=== PATIENT | female | born 1940 | race Caucasian/White ===

== ENCOUNTER 2019-09-11 06:17 | Inpatient (IN) | payer MEDICARE, OTHER ==
[2019-09-11] MEDS ORDERED: PROPOFOL 200 MG/20 ML VIAL IV ONE (08:48)
[2019-09-11] MEDS ORDERED: BUPIV. HCL 0.5% (5MG/ML)/EPI. (1:200,000) PF 30 ML VIAL IJ ONE (08:48)
[2019-09-11] MEDS ORDERED: ONDANSETRON HCL/PF 4 MG/ 2ML VIAL ONE (08:48)
[2019-09-11] MEDS ORDERED: LIDOCAINE HCL 2% PF 100MG/5ML VIAL IJ ONE (08:48)
[2019-09-11] MEDS ORDERED: DEXAMETHASONE SODIUM PHOSPHATE 10 MG/ML VIAL ONE (08:48)
[2019-09-11] MEDS ORDERED: GELATIN SPONGE,ABSORB/PORCINE (SIZE 100) 1 EACH SPONGE TP ONE (08:48)
[2019-09-11] MEDS ORDERED: LACTATED RINGERS 1,000 ML IV.SOLN IV ONE ×2 (08:48)
[2019-09-11] MEDS ORDERED: PHENYLEPHRINE HCL 10 MG/1 ML ONE (08:48)
[2019-09-11] MEDS ORDERED: ROCURONIUM BROMIDE 10 MG/ML 5ML VIAL ONE (08:48)
[2019-09-11] MEDS ORDERED: THROMBIN (RECOMBINANT) 20,000 UNIT VIAL TP ONE (08:48)
[2019-09-11] MEDS ORDERED: ceFAZolin SODIUM 1 GM VIAL ONE (08:48)
[2019-09-11] MEDS ORDERED: hydrALAZINE HCL 20 MG/1 ML ONE (08:48)
[2019-09-11] MEDS ORDERED: PROPOFOL 500 MG/50 ML VIAL IV ONE (08:48)
[2019-09-11] MEDS ORDERED: LABETALOL HCL 20 MG/4 ML SYRINGE IV ONE (08:48)
[2019-09-11] MEDS ORDERED: SEVOFLURANE 250 ML LIQUID IH ONE (08:48)
[2019-09-11] MEDS ORDERED: fentaNYL CITRATE/PF 100 MCG/2 ML INJ. ONE ×2 (12:14→13:00)
[2019-09-11] MEDS ORDERED: HYDROmorphone HCL/PF 1 MG/ML VIAL ONE (12:26)
[2019-09-11] MEDS ORDERED: MEPERIDINE (NF) 100 MG/ML INJ ONE (13:09)
[2019-09-11 15:48] VITALS: BMI 29.0
[2019-09-11] MEDS ORDERED: ALBUTEROL 90MCG/PUFF INHALER IH PRN (17:49)
[2019-09-11] MEDS ORDERED: IPRATROPIUM/ALBUTEROL SULFATE 3 ML AMPUL.NEB NEB PRN (17:49)
--- NOTE | 2019-09-11 18:07 | History and Physical Report ---
History of Present Illnes - History of Present Illness Reason for Visit: Chronic lower back pain, s/p right LFD at L-2,3,4 History of Present Illness: 79yo female with a year history of increasing lower back pain. No precipitating cause noted. Has been having a lot of pain in thigh area. No weakness noted. Patient has been through conservative therapy without much improvement. MRI scan showed spinal stenosis with protruding disc. It was felt that she would benefit from LFD of the L 3,4,5. During surgery patient was noted to have some elevated blood pressure. She was given some labetalol and hydralazine. Operative procedure was complicated with puncture to the dura sac which was closed with suture. Patient has multiple medical problems. Medical records reviewed. Patient does have some memory problems and was not consistent with her history. - Past Medical History Cardiac: HTN, Hyperlipidemia, Other (PAD) Pulmonary: COPD, Sleep Apnea RV REPAIR TECHNICIAN: CVA (x2) Gastrointestinal: Diverticulosis, Irritable bowel disease, Other (history of GI bleeding) Psych: Anxiety, Bipolar Musculoskeletal: Osteoarthritis (generalized), Other (spinal stenosis) Rheumatologic: Other (Lupus) Endocrine: Hypothyroidism - Past Surgical History Past Surgical History: Appendectomy, Cholecystectomy, Cataract Removal - Past Social History Smoke: No Occupation: retired, chef kitchen manager Alcohol: None Drugs: None Lives: With Family, Roommate Domestic Violence: Negative - Health Maintenance Health Maintenance: Cholesterol Influenza Vaccine: No Pneumonia Vaccine: Yes Resuscitation Status: Resusciation Status Resuscitation Status Full Code - Unable to Obtain History Unable to Obtain: No Review of Systems - Review of Systems Constitutional: negative: Fever, Chills, Weakness Eyes: negative: pain, vision change, conjunctivae inflammation ENT: negative: Ear Pain, Ear Discharge, Nose Pain, Nose Discharge, Nose Congestion, Mouth Pain, Mouth Swelling, Throat Pain, Throat Swelling Respiratory: negative: Cough, Shortness of Breath, SOB with Excertion, Pleuritic Pain, Sputum Cardiovascular: negative: Chest Pain, Palpitations, Paroxysmal Noc. Dyspnea, Light Headedness Gastrointestinal: negative: Nausea, Vomiting, Abdominal Pain, Diarrhea, Constipation, Melena, Hematochezia Genitourinary: negative: Dysuria, Frequency, Hematuria Musculoskeletal: Back Pain. negative: Neck Pain, Shoulder Pain Skin: negative: Rash Neurological: negative: Weakness, Numbness, Incoordination, Change in Speech, Confusion, Seizures - Medications/Allergies Allergies/Adverse Reactions: Allergies Allergy/AdvReac Type Severity Reaction Status Date / Time No Known Allergies Allergy Verified 09/11/19 15:48 Home Medications: Home Medications Albuterol Sulfate [Albuterol Sulfate Hfa] 2 puff IH Q4 PRN 09/11/19 Aripiprazole [Abilify] 15 mg PO DAILY 09/11/19 Biotin 5,000 mcg PO DAILY 09/11/19 Duloxetine HCl [Cymbalta] 60 mg PO DAILY 09/11/19 Ezetimibe [Zetia] 10 mg PO DAILY 09/11/19 Furosemide [Lasix] 20 mg PO DAILY 09/11/19 Gabapentin [Neurontin] 200 mg PO TID 09/11/19 Hydroxychloroquine Sulfate [Plaquenil] 200 mg PO DAILY 09/11/19 Hydroxyzine HCl 50 mg PO DAILY 09/11/19 Ipratropium/Albuterol Sulfate [Iprat-Albut 0.5-3(2.5) mg/3 ml] 3 ml IH Q4 PRN 09/11/19 LORazepam [Ativan] 1 mg PO BID 09/11/19 Lamotrigine [Lamictal] 400 mg PO HS 09/11/19 Levothyroxine Sodium [Levo-T] 25 mcg PO DAILY 09/11/19 Potassium Chloride [Klor-Con 10] 10 meq PO DAILY 09/11/19 Sulfasalazine [Azulfidine] 1,000 mg PO BID 09/11/19 Trospium Chloride [Sanctura] 20 mg PO BID 09/11/19 Vitamin B Complex [Balanced B-50] 1 each PO DAILY 09/11/19 Warfarin Sodium [Coumadin] 5 mg PO [id number] 09/11/19 amLODIPine BESYLATE [Norvasc] 10 mg PO 0900 09/11/19 tiZANidine HCL [Zanaflex] 4 mg PO QID 09/11/19 Current Inpatient Medications: Current Inpatient Medications Albuterol Sulfate (Ventolin Hfa) 2 puff IH Q4 PRN PRN Reason: dyspnea Stop: 10/11/19 17:48 Albuterol/Ipratropium (Duoneb) 3 ml NEB Q4 PRN PRN Reason: dyspnea Stop: 10/11/19 17:48 Amlodipine Besylate (Norvasc) 10 mg PO 0900 [facility] Stop: 10/12/19 08:59 Furosemide (Lasix) 20 mg PO DAILY [facility] Stop: 10/12/19 08:59 Gabapentin (Neurontin) 200 mg PO TID [facility] Stop: 10/11/19 17:59 Heparin Sodium (Porcine) (Heparin) 5,000 unit SQ Q12 [facility] Stop: 10/11/19 20:59 Hydroxychloroquine Sulfate (Plaquenil (Nf)) 200 mg PO DAILY [facility] Stop: 10/12/19 08:59 Hydroxyzine HCl (Atarax) 50 mg PO DAILY [facility] Stop: 10/12/19 08:59 Lorazepam (Ativan) 1 mg PO BID PRN PRN Reason: Anxiety Stop: 10/11/19 20:59 Tizanidine HCl (Zanaflex) 4 mg PO QID [facility] Stop: 10/11/19 20:59 Warfarin Sodium (Coumadin) 5 mg PO [id number] [facility] Stop: 10/12/19 17:59 Exam - Exam Vital Signs: Vital Signs (72 hours) 09/11/19 09/11/19 09/11/19 13:45 14:15 14:26 Temperature 97.4 F L 97.2 F L 97.4 F L Pulse Rate [ 96 H 95 H 96 H Right Pulse ox] Respiratory 20 20 20 Rate Blood Pressure 170/87 157/73 170/87 [Right Arm] O2 Sat by Pulse 97 98 97 Oximetry 09/11/19 09/11/19 16:00 17:51 Temperature 97.5 F L 97.4 F L Pulse Rate [ 85 84 Right Pulse ox] Respiratory 20 26 H Rate Blood Pressure 172/81 193/79 [Right Arm] O2 Sat by Pulse 98 99 Oximetry General: Alert, Oriented to Person, Oriented to Place, Oriented to Time, Cooperative HEENT: Atraumatic, PERRLA, EOMI, Mouth Mucous membr. moist/Levan, Nose Mucous membr. moist/Levan Neck: Normal Range of Motion Carotids: WNL Thyroid: WNL Lungs: Clear to auscultation, Normal air movement, Speaks full Sentences Cardiovascular: Regular rate, Normal S1, Normal S2, No murmurs Abdomen: Normal bowel sounds, Soft, No tenderness, No hepatospenomegaly, No masses Integumentary: Normal, [place], Warm, Dry Extremities: No clubbing, No cyanosis, No edema, Normal pulses, No tenderness/swelling Neurological: Normal gait, Normal speech, Strength Equal Bilat, Normal tone, Sensation intact, Cranial nerves 3-12 NL, Reflexes 2+ Psych/Mental Status: Mental status NL, Mood NL, Appropriate Affect, Intact Judgment - Laboratory Results Laboratory Results: Laboratory Results 09/11/19 07:48 PT 10.4 INR 1.00 APTT 25.7 Assessment/Plan - Assessment/Plan (1) Chronic low back pain Status: Chronic Current Visit: Yes (2) Essential hypertension Status: Chronic Current Visit: Yes (3) PVD (peripheral vascular disease) Status: Chronic Current Visit: Yes (4) Hypothyroidism Status: Chronic Current Visit: Yes (5) bipolar type 1 Status: Chronic Current Visit: Yes (6) GERD (gastroesophageal reflux disease) Status: Chronic Current Visit: Yes Qualifiers: Esophagitis presence: without esophagitis Qualified Code(s): K21.9 - Gastro-esophageal reflux disease without esophagitis Comment: stable (7) Status post cerebrovascular accident Status: Resolved Current Visit: Yes (8) COPD (chronic obstructive pulmonary disease) Status: Chronic Current Visit: Yes Qualifiers: Emphysema type: panlobular (9) Generalized osteoarthritis Status: Chronic Current Visit: Yes (10) Lupus Status: Chronic Current Visit: Yes VTE Assessment - RISK FACTOR SCORE VTE RISK FACTOR SCORES: AGE OVER 60 YEARS, ANTICIPATED BED CONFINEMENT OR IMMOBILIZATION > 24 HOURS
[2019-09-11] MEDS: GABAPENTIN 100 MG CAPSULE PO SCH (18:25)
[2019-09-11] MEDS ORDERED: TRIAMTERENE/HCTZ 37.5/25MG TAB PO SCH (19:00)
[2019-09-11] MEDS ORDERED: HYDROmorphone HCL/PF 2 MG/ML VIAL ONE (20:06)
[2019-09-11] MEDS: HEPARIN SODIUM 5000 UNIT/1 ML SQ SCH (20:29)
[2019-09-11] MEDS: HYDROmorphone HCL/PF 1 MG/ML VIAL IVP PRN (20:31)
[2019-09-11] MEDS ORDERED: amLODIPine BESYLATE 5 MG TABLET ONE (20:49)
[2019-09-11] MEDS: amLODIPine BESYLATE 5 MG TABLET PO SCH (21:18)
[2019-09-11] MEDS: LORazepam 1 MG TABLET PO PRN (23:08)
[2019-09-12] MEDS: lamoTRIgine 100 MG TABLET PO SCH ×2 (04:17→20:51)
[2019-09-12] MEDS: DULoxetine HCL 30 MG CAPSULE.DR PO SCH ×2 (04:17→20:50)
[2019-09-12] MEDS: SODIUM CHLORIDE 0.9 % (FLUSH) 10 ML DISP.SYRIN IV SCH ×3 (04:18→22:02)
[2019-09-12] MEDS: TIZANIDINE HCL 4 MG TABLET PO SCH ×5 (04:18→20:50)
[2019-09-12] MEDS ORDERED: HYDROmorphone HCL/PF 2 MG/ML VIAL ONE (05:19)
[2019-09-12] MEDS: HYDROmorphone HCL/PF 1 MG/ML VIAL IVP PRN (05:34)
[2019-09-12] MEDS: LEVOTHYROXINE SODIUM 50 MCG TABLET PO SCH (06:18)
[2019-09-12 06:57] LABS: BASOPHILS % 0.4 % (0.0-1.5); NEUTROPHILS # 7.8 # k/uL (1.4-7.7)
[2019-09-12 06:58] LABS: eGFR (Non-African) > 60
[2019-09-12] MEDS ORDERED: hydrALAZINE HCL 25 MG TABLET PO ONE (07:45)
[2019-09-12] MEDS ORDERED: amLODIPine BESYLATE 5 MG TABLET ONE (07:45)
[2019-09-12] MEDS ORDERED: POTASSIUM CHLORIDE 10 MEQ TABLET.ER PO SCH (09:00)
[2019-09-12] MEDS ORDERED: amLODIPine BESYLATE 5 MG TABLET PO SCH (09:00)
[2019-09-12] MEDS ORDERED: FUROSEMIDE 20 MG TABLET PO SCH (09:00)
[2019-09-12] MEDS ORDERED: TRIAMTERENE/HCTZ 37.5/25MG TAB PO SCH (09:00)
[2019-09-12] MEDS: ARIPiprazole 2 MG TABLET PO SCH (09:02)
[2019-09-12] MEDS: HYDROXYCHLOROQUINE 200 MG PO SCH (09:03)
[2019-09-12] MEDS: amLODIPine BESYLATE 5 MG TABLET PO SCH (09:03)
[2019-09-12] MEDS: HEPARIN SODIUM 5000 UNIT/1 ML SQ SCH ×2 (09:04→20:50)
[2019-09-12] MEDS: hydrOXYzine HCL 25 MG TABLET PO SCH (09:18)
[2019-09-12] MEDS: GABAPENTIN 100 MG CAPSULE PO SCH ×3 (09:18→17:11)
[2019-09-12] MEDS ORDERED: WARFARIN SODIUM 5 MG TABLET PO ONE ×2 (17:43→17:45)
[2019-09-12] MEDS ORDERED: WARFARIN SODIUM 5 MG TABLET PO SCH (18:00)
[2019-09-12 18:12] LABS: BASOPHILS % 0.3 % (0.0-1.5); NEUTROPHILS # 5.5 # k/uL (1.4-7.7)
[2019-09-12] MEDS: 0.9 % SODIUM CHLORIDE 1,000 ML IV SCH (22:14)
[2019-09-13] MEDS: LEVOTHYROXINE SODIUM 50 MCG TABLET PO SCH (06:10)
[2019-09-13 07:42] LABS: BASOPHILS % 0.5 % (0.0-1.5); NEUTROPHILS # 4.5 # k/uL (1.4-7.7)
[2019-09-13 07:43] LABS: SEGMENTED NEUTROPHILS % 75 % (39-79)
[2019-09-13 07:44] LABS: ANISOCYTOSIS 1+ (NEGATIVE)
[2019-09-13] MEDS: ARIPiprazole 2 MG TABLET PO SCH (09:07)
[2019-09-13] MEDS: HYDROXYCHLOROQUINE 200 MG PO SCH (09:08)
[2019-09-13] MEDS: GABAPENTIN 100 MG CAPSULE PO SCH ×3 (09:08→17:57)
[2019-09-13] MEDS: hydrOXYzine HCL 25 MG TABLET PO SCH (09:08)
[2019-09-13] MEDS: TIZANIDINE HCL 4 MG TABLET PO SCH ×4 (09:08→21:16)
[2019-09-13] MEDS: HEPARIN SODIUM 5000 UNIT/1 ML SQ SCH ×2 (09:08→21:17)
[2019-09-13] MEDS: 0.9 % SODIUM CHLORIDE 1,000 ML IV SCH ×2 (12:46→16:52)
[2019-09-13] MEDS ORDERED: WARFARIN SODIUM 5 MG TABLET PO ONE (13:37)
[2019-09-13] MEDS: DULoxetine HCL 30 MG CAPSULE.DR PO SCH (21:16)
[2019-09-13] MEDS: lamoTRIgine 100 MG TABLET PO SCH (21:17)
[2019-09-14] MEDS: LORazepam 1 MG TABLET PO PRN (01:25)
[2019-09-14] MEDS: 0.9 % SODIUM CHLORIDE 1,000 ML IV SCH ×2 (01:26→01:29)
[2019-09-14] MEDS ORDERED: FUROSEMIDE 40 MG/4 ML VIAL ONE (05:15)
[2019-09-14] MEDS ORDERED: FUROSEMIDE 40 MG/4 ML VIAL IVP ONE (05:45)
[2019-09-14] MEDS ORDERED: methylPREDNISolone SOD SUCC 125 MG/2 ML VIAL IVP ONE (05:46)
[2019-09-14] MEDS ORDERED: METOPROLOL TARTRATE 5 MG/5 ML VIAL IV ONE ×2 (05:52→05:53)
[2019-09-14] MEDS ORDERED: ASPIRIN 81 MG CHEW TAB ONE (05:52)
[2019-09-14] MEDS ORDERED: ASPIRIN EC 81 MG TABLET.DR PO ONE (05:52)
[2019-09-14] MEDS ORDERED: ASPIRIN 81 MG CHEW TAB PO ONE (05:55)
[2019-09-14] MEDS: LEVOTHYROXINE SODIUM 50 MCG TABLET PO SCH (06:30)
[2019-09-14 06:48] LABS: BASOPHILS % 0.3 % (0.0-1.5)
[2019-09-14] MEDS ORDERED: WARFARIN SODIUM 5 MG TABLET PO ONE (07:13)
[2019-09-14] MEDS: ARIPiprazole 2 MG TABLET PO SCH (08:21)
[2019-09-14] MEDS: TIZANIDINE HCL 4 MG TABLET PO SCH ×2 (08:22→13:28)
[2019-09-14] MEDS: GABAPENTIN 100 MG CAPSULE PO SCH ×2 (08:22→13:28)
[2019-09-14] MEDS: hydrOXYzine HCL 25 MG TABLET PO SCH (08:22)
[2019-09-14] MEDS: HYDROXYCHLOROQUINE 200 MG PO SCH (08:22)
[2019-09-14] MEDS: HEPARIN SODIUM 5000 UNIT/1 ML SQ SCH (08:23)
--- NOTE | 2019-09-14 08:37 | Inpatient Progress Note ---
Subjective - Required Recertification Statement I anticipate X number of days because-include discharge plan: 1 day - Review of Systems Events since last encounter: Patient states that her pain seems to be doing better at this time.She does not complain of any headaches or dizziness. Patient is a two person assist at this time with ambulation. It is not felt that she will do well going home. I have talked with her [id number] and he states that she was marginal with her am bulation even prior to surgery. BP seems to be doing better at this time, Systolic has been in the 150-160s. General: Denies: Chills HEENT: Denies: Head Aches Pulmonary: Denies: Dyspnea, Cough Cardiovascular: Denies: Chest Pain, Palpitations Gastrointestinal: Denies: Nausea, Vomiting, Abdominal Pain, Constipation Musculoskeletal: Back Pain Objective - Exam Vitals and I&O: Vital Signs Temp 97.6 F 09/14/19 02:00 Pulse 116 H 09/14/19 07:40 Resp 22 09/14/19 07:40 BP 172/84 09/14/19 05:41 Pulse Ox 94 09/14/19 07:40 Intake & Output 09/13/19 09/13/19 09/14/19 11:59 23:59 11:59 Intake Total 600 480 240 Output Total 575 Balance 25 480 240 Intake: Oral 600 480 240 Output: Urine 575 Other: Voiding Method Bedside Commode Bedside Commode Toilet # Voids 1 3 # Bowel Movements 0 General: Alert, Oriented to Person, Oriented to Place, Oriented to Time, Cooperative, Mild distress Neck: Supple, No JVD Lungs: Clear to auscultation, Normal air movement, Speaks full Sentences. No: Wheezes, Rales, Rhonchi Cardiovascular: Regular rate, Normal S1, Normal S2, No murmurs Abdomen: Soft, No tenderness, Decreased Bowel Sounds Extremities: No clubbing, No cyanosis, No edema, Normal pulses - Results Results: Laboratory Results WBC 9.80 K/ul (4.00-12.00) 09/14/19 06:00 RBC 3.31 M/ul (3.90-5.20) L 09/14/19 06:00 Hgb 9.6 g/dL (11.5-16.0) L 09/14/19 06:00 Hct 28.3 % (34.5-46.5) L 09/14/19 06:00 MCV 86.0 fl (80.0-100.0) 09/14/19 06:00 MCH 29.0 pg (28.0-34.0) 09/14/19 06:00 MCHC 33.9 g/dL (30.0-36.0) 09/14/19 06:00 RDW 14.1 % (11.3-14.3) 09/14/19 06:00 Plt Count 239 K/mm3 (130-400) 09/14/19 06:00 Neut % (Auto) 71.3 % (39.0-79.0) 09/14/19 06:00 Lymph % (Auto) 16.2 % (16.0-50.0) 09/14/19 06:00 [place] % (Auto) 11.7 % (0.0-11.0) H 09/14/19 06:00 Eos % (Auto) 0.5 % (0.0-6.8) 09/14/19 06:00 Baso % (Auto) 0.3 % (0.0-1.5) 09/14/19 06:00 Neut # (Auto) 7.0 # k/uL (1.4-7.7) 09/14/19 06:00 Lymph # (Auto) 1.6 # k/uL (0.6-4.0) 09/14/19 06:00 [place] # (Auto) 1.1 # k/uL (0.0-0.9) H 09/14/19 06:00 Eos # (Auto) 0.1 # k/uL (0.0-0.6) 09/14/19 06:00 Baso # (Auto) 0.0 # k/uL (0.0-0.5) 09/14/19 06:00 Seg Neutrophils % 75 % (39-79) 09/13/19 07:03 Lymphocytes % 14 % (16-50) L 09/13/19 07:03 Monocytes % 11 % (0-11) 09/13/19 07:03 Plt Morphology Comment Normal (NORMAL) 09/13/19 07:03 Anisocytosis 1+ (NEGATIVE) H 09/13/19 07:03 RBC Morph Comment Abnormal (NORMAL) H 09/13/19 07:03 PT 13.8 Seconds (8.8-11.9) H 09/14/19 05:51 INR 1.33 (0.80-1.10) H 09/14/19 05:51 APTT 25.7 Seconds (24.7-37.8) 09/11/19 07:48 Sodium 139 mmol/L (137-145) 09/14/19 06:00 Potassium 3.1 mmol/L (3.5-5.1) L 09/14/19 06:00 Chloride 99 mmol/L (98-107) 09/14/19 06:00 Carbon Dioxide 23 mmol/L (22-30) 09/14/19 06:00 Anion Gap 20.1 09/14/19 06:00 BUN 25 mg/dL (7-17) H 09/14/19 06:00 Creatinine 1.48 mg/dL (0.52-1.04) H 09/14/19 06:00 Estimated Creat Clear 45 09/14/19 06:00 Est GFR ( Amer) 44 (60-) L 09/14/19 06:00 Est GFR (Non-Af Amer) 36 (60-) L 09/14/19 06:00 Glucose 142 mg/dL (74-106) H 09/14/19 06:00 Calcium 9.3 mg/dL (8.4-10.2) 09/14/19 06:00 Total Bilirubin 0.7 mg/dL (0.2-1.3) 09/13/19 07:03 AST 50 U/L (15-46) H 09/13/19 07:03 ALT 10 U/L (0-35) 09/13/19 07:03 Alkaline Phosphatase 69 U/L (38-126) 09/13/19 07:03 Creatine Kinase 595 U/L (30-135) H 09/14/19 06:00 Troponin I 0.120 ng/mL (0.012-0.034) H 09/14/19 06:00 NT-Pro-B Natriuret Pep 87112.0 pg/mL (15.0-450.0) H 09/14/19 06:00 Total Protein 7.5 g/dL (6.3-8.2) 09/13/19 07:03 Albumin 4.2 g/dL (3.5-5.0) 09/13/19 07:03 Assessment/Plan - Assessment/Plan (1) Chronic low back pain Status: Acute Current Visit: Yes (2) Essential hypertension Status: Acute Current Visit: Yes Assessment: Seem to be down from last night. Will continue with home medications and monitor (3) PVD (peripheral vascular disease) Status: Chronic Current Visit: Yes (4) Hypothyroidism Status: Chronic Current Visit: Yes (5) bipolar type 1 Status: Chronic Current Visit: Yes (6) GERD (gastroesophageal reflux disease) Status: Chronic Current Visit: Yes Qualifiers: Esophagitis presence: without esophagitis Qualified Code(s): K21.9 - Gastro-esophageal reflux disease without esophagitis (7) Status post cerebrovascular accident Status: Resolved Current Visit: Yes (8) COPD (chronic obstructive pulmonary disease) Status: Chronic Current Visit: Yes Qualifiers: Emphysema type: panlobular (9) Generalized osteoarthritis Status: Chronic Current Visit: Yes (10) Lupus Status: Chronic Current Visit: Yes
--- NOTE | 2019-09-14 08:37 | Inpatient Progress Note ---
Subjective - Required Recertification Statement I anticipate X number of days because-include discharge plan: 1 day - Review of Systems Events since last encounter: Patients BP has improved some with fluids. This AM labs show elevated BUN and creatinine above baseline. Patient denies any chest pain or pressure at this time. PT/OT still does not feel that she is going to be safe going home at this time and needs further rehab services. Arrangements have been made to have her g o to [facility] further rehab services once her BP stabilized. Patient is eating some better today. Patient states that her pain in the legs prior to surgery are better. HEENT: Denies: Head Aches Pulmonary: Denies: Dyspnea, Cough Cardiovascular: Denies: Chest Pain, Palpitations Gastrointestinal: Constipation (no BM but feels that she needs to have one). Denies: Abdominal Pain Musculoskeletal: Back Pain (improved some) Objective - Exam Vitals and I&O: Vital Signs Temp 97.6 F 09/14/19 02:00 Pulse 116 H 09/14/19 07:40 Resp 22 09/14/19 07:40 BP 172/84 09/14/19 05:41 Pulse Ox 94 09/14/19 07:40 Intake & Output 09/13/19 09/13/19 09/14/19 11:59 23:59 11:59 Intake Total 600 480 240 Output Total 575 Balance 25 480 240 Intake: Oral 600 480 240 Output: Urine 575 Other: Voiding Method Bedside Commode Bedside Commode Toilet # Voids 1 3 # Bowel Movements 0 General: Alert, Oriented to Person, Oriented to Place, Oriented to Time, Cooperative, Mild distress Neck: Supple, No JVD Lungs: Clear to auscultation, Normal air movement, Speaks full Sentences. No: Wheezes, Rales, Rhonchi Cardiovascular: Regular rate, Normal S1, Normal S2 Abdomen: Normal bowel sounds, Soft Extremities: No clubbing, No cyanosis, No edema Skin: Normal, [place], Warm, Other (wound dressing dry) - Results Results: Laboratory Results WBC 9.80 K/ul (4.00-12.00) 09/14/19 06:00 RBC 3.31 M/ul (3.90-5.20) L 09/14/19 06:00 Hgb 9.6 g/dL (11.5-16.0) L 09/14/19 06:00 Hct 28.3 % (34.5-46.5) L 09/14/19 06:00 MCV 86.0 fl (80.0-100.0) 09/14/19 06:00 MCH 29.0 pg (28.0-34.0) 09/14/19 06:00 MCHC 33.9 g/dL (30.0-36.0) 09/14/19 06:00 RDW 14.1 % (11.3-14.3) 09/14/19 06:00 Plt Count 239 K/mm3 (130-400) 09/14/19 06:00 Neut % (Auto) 71.3 % (39.0-79.0) 09/14/19 06:00 Lymph % (Auto) 16.2 % (16.0-50.0) 09/14/19 06:00 [place] % (Auto) 11.7 % (0.0-11.0) H 09/14/19 06:00 Eos % (Auto) 0.5 % (0.0-6.8) 09/14/19 06:00 Baso % (Auto) 0.3 % (0.0-1.5) 09/14/19 06:00 Neut # (Auto) 7.0 # k/uL (1.4-7.7) 09/14/19 06:00 Lymph # (Auto) 1.6 # k/uL (0.6-4.0) 09/14/19 06:00 [place] # (Auto) 1.1 # k/uL (0.0-0.9) H 09/14/19 06:00 Eos # (Auto) 0.1 # k/uL (0.0-0.6) 09/14/19 06:00 Baso # (Auto) 0.0 # k/uL (0.0-0.5) 09/14/19 06:00 Seg Neutrophils % 75 % (39-79) 09/13/19 07:03 Lymphocytes % 14 % (16-50) L 09/13/19 07:03 Monocytes % 11 % (0-11) 09/13/19 07:03 Plt Morphology Comment Normal (NORMAL) 09/13/19 07:03 Anisocytosis 1+ (NEGATIVE) H 09/13/19 07:03 RBC Morph Comment Abnormal (NORMAL) H 09/13/19 07:03 PT 13.8 Seconds (8.8-11.9) H 09/14/19 05:51 INR 1.33 (0.80-1.10) H 09/14/19 05:51 APTT 25.7 Seconds (24.7-37.8) 09/11/19 07:48 Sodium 139 mmol/L (137-145) 09/14/19 06:00 Potassium 3.1 mmol/L (3.5-5.1) L 09/14/19 06:00 Chloride 99 mmol/L (98-107) 09/14/19 06:00 Carbon Dioxide 23 mmol/L (22-30) 09/14/19 06:00 Anion Gap 20.1 09/14/19 06:00 BUN 25 mg/dL (7-17) H 09/14/19 06:00 Creatinine 1.48 mg/dL (0.52-1.04) H 09/14/19 06:00 Estimated Creat Clear 45 09/14/19 06:00 Est GFR ( Amer) 44 (60-) L 09/14/19 06:00 Est GFR (Non-Af Amer) 36 (60-) L 09/14/19 06:00 Glucose 142 mg/dL (74-106) H 09/14/19 06:00 Calcium 9.3 mg/dL (8.4-10.2) 09/14/19 06:00 Total Bilirubin 0.7 mg/dL (0.2-1.3) 09/13/19 07:03 AST 50 U/L (15-46) H 09/13/19 07:03 ALT 10 U/L (0-35) 09/13/19 07:03 Alkaline Phosphatase 69 U/L (38-126) 09/13/19 07:03 Creatine Kinase 595 U/L (30-135) H 09/14/19 06:00 Troponin I 0.120 ng/mL (0.012-0.034) H 09/14/19 06:00 NT-Pro-B Natriuret Pep 57758.0 pg/mL (15.0-450.0) H 09/14/19 06:00 Total Protein 7.5 g/dL (6.3-8.2) 09/13/19 07:03 Albumin 4.2 g/dL (3.5-5.0) 09/13/19 07:03 Assessment/Plan - Assessment/Plan (1) Chronic low back pain Status: Chronic Current Visit: Yes Assessment: Patient seems to be recovering from her surgery OK. She does not seem to be having any problems with dural tear that was repaired. She is still needing assistance with ambulation. Not safe to return home at this time. Pain is managed with oral medications at this time. Plan is for patient to be discharged to [facility] in AM. (2) Essential hypertension Status: Chronic Current Visit: Yes Assessment: I discontinued all of her BP medications yesterday because of some hypotesive episodes. BP has been doing better today with sytolic on the 90-100 range. (3) Hypothyroidism Status: Chronic Current Visit: Yes (4) bipolar type 1 Status: Chronic Current Visit: Yes Assessment: stable (5) GERD (gastroesophageal reflux disease) Status: Chronic Current Visit: Yes Qualifiers: Esophagitis presence: without esophagitis Qualified Code(s): K21.9 - Gastro-esophageal reflux disease without esophagitis Comment: stable (6) Status post cerebrovascular accident Status: Resolved Current Visit: Yes Assessment: Patient has been restarted on her Coumadin, INR is still subtherapeutic, will give 10mg of coumadin today. (7) COPD (chronic obstructive pulmonary disease) Status: Chronic Current Visit: Yes Qualifiers: Emphysema type: panlobular Assessment: stable (8) Dehydration Status: Acute Current Visit: Yes Assessment: BUN and creatinine are elevated above baseline. Will continue with slow rehydration with fluids at 100cc NS / hr.
--- NOTE | 2019-09-14 08:45 | Inpatient Progress Note ---
Subjective - Required Recertification Statement I anticipate X number of days because-include discharge plan: 1 day - Review of Systems Events since last encounter: Patient has had some episodes of hypotension this afternoon. She has been getting her usual BP medication. She has been taking lasix with some minimal oral intake. She denies any chest pain or pressure at this time. She is still requiring some assistance with ambulation. Objective - Exam Vitals and I&O: Vital Signs Temp 97.6 F 09/14/19 02:00 Pulse 116 H 09/14/19 07:40 Resp 22 09/14/19 07:40 BP 172/84 09/14/19 05:41 Pulse Ox 94 09/14/19 07:40 Intake & Output 09/13/19 09/13/19 09/14/19 11:59 23:59 11:59 Intake Total 600 480 240 Output Total 575 Balance 25 480 240 Intake: Oral 600 480 240 Output: Urine 575 Other: Voiding Method Bedside Commode Bedside Commode Toilet # Voids 1 3 # Bowel Movements 0 General: Alert, Oriented to Person, Oriented to Place, Oriented to Time, Cooperative Neck: Supple Lungs: Clear to auscultation, Normal air movement Cardiovascular: Regular rate, Normal S1, Normal S2 Abdomen: Soft, No tenderness, Decreased Bowel Sounds Extremities: No clubbing, No cyanosis, No edema - Results Results: Laboratory Results WBC 9.80 K/ul (4.00-12.00) 09/14/19 06:00 RBC 3.31 M/ul (3.90-5.20) L 09/14/19 06:00 Hgb 9.6 g/dL (11.5-16.0) L 09/14/19 06:00 Hct 28.3 % (34.5-46.5) L 09/14/19 06:00 MCV 86.0 fl (80.0-100.0) 09/14/19 06:00 MCH 29.0 pg (28.0-34.0) 09/14/19 06:00 MCHC 33.9 g/dL (30.0-36.0) 09/14/19 06:00 RDW 14.1 % (11.3-14.3) 09/14/19 06:00 Plt Count 239 K/mm3 (130-400) 09/14/19 06:00 Neut % (Auto) 71.3 % (39.0-79.0) 09/14/19 06:00 Lymph % (Auto) 16.2 % (16.0-50.0) 09/14/19 06:00 [place] % (Auto) 11.7 % (0.0-11.0) H 09/14/19 06:00 Eos % (Auto) 0.5 % (0.0-6.8) 09/14/19 06:00 Baso % (Auto) 0.3 % (0.0-1.5) 09/14/19 06:00 Neut # (Auto) 7.0 # k/uL (1.4-7.7) 09/14/19 06:00 Lymph # (Auto) 1.6 # k/uL (0.6-4.0) 09/14/19 06:00 [place] # (Auto) 1.1 # k/uL (0.0-0.9) H 09/14/19 06:00 Eos # (Auto) 0.1 # k/uL (0.0-0.6) 09/14/19 06:00 Baso # (Auto) 0.0 # k/uL (0.0-0.5) 09/14/19 06:00 Seg Neutrophils % 75 % (39-79) 09/13/19 07:03 Lymphocytes % 14 % (16-50) L 09/13/19 07:03 Monocytes % 11 % (0-11) 09/13/19 07:03 Plt Morphology Comment Normal (NORMAL) 09/13/19 07:03 Anisocytosis 1+ (NEGATIVE) H 09/13/19 07:03 RBC Morph Comment Abnormal (NORMAL) H 09/13/19 07:03 PT 13.8 Seconds (8.8-11.9) H 09/14/19 05:51 INR 1.33 (0.80-1.10) H 09/14/19 05:51 APTT 25.7 Seconds (24.7-37.8) 09/11/19 07:48 Sodium 139 mmol/L (137-145) 09/14/19 06:00 Potassium 3.1 mmol/L (3.5-5.1) L 09/14/19 06:00 Chloride 99 mmol/L (98-107) 09/14/19 06:00 Carbon Dioxide 23 mmol/L (22-30) 09/14/19 06:00 Anion Gap 20.1 09/14/19 06:00 BUN 25 mg/dL (7-17) H 09/14/19 06:00 Creatinine 1.48 mg/dL (0.52-1.04) H 09/14/19 06:00 Estimated Creat Clear 45 09/14/19 06:00 Est GFR ( Amer) 44 (60-) L 09/14/19 06:00 Est GFR (Non-Af Amer) 36 (60-) L 09/14/19 06:00 Glucose 142 mg/dL (74-106) H 09/14/19 06:00 Calcium 9.3 mg/dL (8.4-10.2) 09/14/19 06:00 Total Bilirubin 0.7 mg/dL (0.2-1.3) 09/13/19 07:03 AST 50 U/L (15-46) H 09/13/19 07:03 ALT 10 U/L (0-35) 09/13/19 07:03 Alkaline Phosphatase 69 U/L (38-126) 09/13/19 07:03 Creatine Kinase 595 U/L (30-135) H 09/14/19 06:00 Troponin I 0.120 ng/mL (0.012-0.034) H 09/14/19 06:00 NT-Pro-B Natriuret Pep 37304.0 pg/mL (15.0-450.0) H 09/14/19 06:00 Total Protein 7.5 g/dL (6.3-8.2) 09/13/19 07:03 Albumin 4.2 g/dL (3.5-5.0) 09/13/19 07:03 Assessment/Plan - Assessment/Plan (1) Chronic low back pain Status: Chronic Current Visit: Yes (2) Hypotension Status: Acute Current Visit: Yes Assessment: Patient may be getting dehydrated some. Will start some IV fluids and monitor.
--- NOTE | 2019-09-14 09:17 | Inpatient Progress Note ---
Subjective - Required Recertification Statement I anticipate X number of days because-include discharge plan: 1 - Review of Systems Events since last encounter: Patient seemed to be doing well until about 0500 this AM when she developed some shortness of breath, tachycardic with pulse in the 140s, her SAO2 dropped to the mid 80 range. At that time she was complaining of some left shoulder pain, possible left anterior chest pain. Patient was noted to have some course rales in her lung mohr. She was felt to have some developing CHF and was given some IV lasix with resolution of her symptoms. CXR showed some bilateral opacities which kym represent some pulmonary edema. EKG showed some sinus tach with some ST depression in the lateral leads. Subsequent labs came back with BNP 18,555, troponin 0.12 (previous 0.013), BUN 25, and creat 1.48. Subjective: Patient states that she is feeling much better at this time, feels that her breathing is close to baseline. She has not had any further chest or arm pain. HEENT: Denies: Head Aches Cardiovascular: Chest Pain, Palpitations Gastrointestinal: Denies: Nausea, Vomiting, Abdominal Pain Objective - Exam Vitals and I&O: Vital Signs Temp 98.4 F 09/14/19 08:53 Pulse 98 H 09/14/19 08:53 Resp 20 09/14/19 08:53 BP 153/70 09/14/19 08:53 Pulse Ox 98 09/14/19 08:53 Intake & Output 09/13/19 09/13/19 09/14/19 11:59 23:59 11:59 Intake Total 600 480 840 Output Total 575 Balance 25 480 840 Intake: Oral 600 480 840 Output: Urine 575 Other: Voiding Method Bedside Commode Bedside Commode Toilet # Voids 1 3 # Bowel Movements 0 General: Alert, Oriented to Person, Oriented to Place, Oriented to Time, Cooperative Neck: Supple, No JVD Lungs: Normal air movement, Rales (few basilar). No: Rhonchi Cardiovascular: Regular rate Abdomen: Normal bowel sounds, Soft, No tenderness Extremities: No clubbing, No edema - Results Results: Laboratory Results WBC 9.80 K/ul (4.00-12.00) 09/14/19 06:00 RBC 3.31 M/ul (3.90-5.20) L 09/14/19 06:00 Hgb 9.6 g/dL (11.5-16.0) L 09/14/19 06:00 Hct 28.3 % (34.5-46.5) L 09/14/19 06:00 MCV 86.0 fl (80.0-100.0) 09/14/19 06:00 MCH 29.0 pg (28.0-34.0) 09/14/19 06:00 MCHC 33.9 g/dL (30.0-36.0) 09/14/19 06:00 RDW 14.1 % (11.3-14.3) 09/14/19 06:00 Plt Count 239 K/mm3 (130-400) 09/14/19 06:00 Neut % (Auto) 71.3 % (39.0-79.0) 09/14/19 06:00 Lymph % (Auto) 16.2 % (16.0-50.0) 09/14/19 06:00 [place] % (Auto) 11.7 % (0.0-11.0) H 09/14/19 06:00 Eos % (Auto) 0.5 % (0.0-6.8) 09/14/19 06:00 Baso % (Auto) 0.3 % (0.0-1.5) 09/14/19 06:00 Neut # (Auto) 7.0 # k/uL (1.4-7.7) 09/14/19 06:00 Lymph # (Auto) 1.6 # k/uL (0.6-4.0) 09/14/19 06:00 [place] # (Auto) 1.1 # k/uL (0.0-0.9) H 09/14/19 06:00 Eos # (Auto) 0.1 # k/uL (0.0-0.6) 09/14/19 06:00 Baso # (Auto) 0.0 # k/uL (0.0-0.5) 09/14/19 06:00 Seg Neutrophils % 75 % (39-79) 09/13/19 07:03 Lymphocytes % 14 % (16-50) L 09/13/19 07:03 Monocytes % 11 % (0-11) 09/13/19 07:03 Plt Morphology Comment Normal (NORMAL) 09/13/19 07:03 Anisocytosis 1+ (NEGATIVE) H 09/13/19 07:03 RBC Morph Comment Abnormal (NORMAL) H 09/13/19 07:03 PT 13.8 Seconds (8.8-11.9) H 09/14/19 05:51 INR 1.33 (0.80-1.10) H 09/14/19 05:51 APTT 25.7 Seconds (24.7-37.8) 09/11/19 07:48 Sodium 139 mmol/L (137-145) 09/14/19 06:00 Potassium 3.1 mmol/L (3.5-5.1) L 09/14/19 06:00 Chloride 99 mmol/L (98-107) 09/14/19 06:00 Carbon Dioxide 23 mmol/L (22-30) 09/14/19 06:00 Anion Gap 20.1 09/14/19 06:00 BUN 25 mg/dL (7-17) H 09/14/19 06:00 Creatinine 1.48 mg/dL (0.52-1.04) H 09/14/19 06:00 Estimated Creat Clear 45 09/14/19 06:00 Est GFR ( Amer) 44 (60-) L 09/14/19 06:00 Est GFR (Non-Af Amer) 36 (60-) L 09/14/19 06:00 Glucose 142 mg/dL (74-106) H 09/14/19 06:00 Calcium 9.3 mg/dL (8.4-10.2) 09/14/19 06:00 Total Bilirubin 0.7 mg/dL (0.2-1.3) 09/13/19 07:03 AST 50 U/L (15-46) H 09/13/19 07:03 ALT 10 U/L (0-35) 09/13/19 07:03 Alkaline Phosphatase 69 U/L (38-126) 09/13/19 07:03 Creatine Kinase 595 U/L (30-135) H 09/14/19 06:00 Troponin I 0.120 ng/mL (0.012-0.034) H 09/14/19 06:00 NT-Pro-B Natriuret Pep 03778.0 pg/mL (15.0-450.0) H 09/14/19 06:00 Total Protein 7.5 g/dL (6.3-8.2) 09/13/19 07:03 Albumin 4.2 g/dL (3.5-5.0) 09/13/19 07:03 Assessment/Plan - Assessment/Plan (1) Chronic low back pain Status: Chronic Current Visit: Yes (2) Essential hypertension Status: Chronic Current Visit: Yes (3) COPD (chronic obstructive pulmonary disease) Status: Chronic Current Visit: Yes Qualifiers: Emphysema type: panlobular (4) Dyspnea Status: Acute Current Visit: Yes Assessment: Patient appears to have some CHF. It is not sure if the respiratory symptoms made patient anxious and tachycardic which caused some cardiac strain with elevated troponin or if she had a mild ischemic event that created dyspnea and elevated troponin. She does appear to be doing better at this time time.
--- NOTE | 2019-09-14 12:16 | Discharge Summary ---
Discharge Summary - Discharge [facility] Admission Date: 09/11/19 (Acute) Discharge Date: 09/14/19 (Transfer to [facility]) Discharge To: Other History of Present Illness: 79yo female with a year history of increasing lower back pain. No precipitating cause noted. Has been having a lot of pain in L thigh area. No weakness noted. Patient has been through conservative therapy without much improvement. MRI scan showed spinal stenosis with protruding disc. It was felt that she would benefit from LFD of the L 3,4,5. Surgery was to be out patient surgery. During surgery patient was noted to have some elevated blood pressure. She was given some labetalol and hydralazine. Operative procedure was complicated with puncture to the dura sac which was closed with suture. Patient required to be supine for 12 hours and admitted to observation care. Patient has multiple medical problems. Medical records reviewed. Patient does have some memory problems and was not consistent with her history. Condition at Discharge: Stable Home Medications: Ambulatory Orders Medication Instructions Recorded Albuterol Sulfate [Albuterol 2 puff IH Q4 PRN 09/11/19 Sulfate Hfa] Aripiprazole [Abilify] 15 mg PO DAILY 09/11/19 Biotin 5,000 mcg PO DAILY 09/11/19 Duloxetine HCl [Cymbalta] 60 mg PO DAILY 09/11/19 Ezetimibe [Zetia] 10 mg PO DAILY 09/11/19 Furosemide [Lasix] 20 mg PO DAILY 09/11/19 Gabapentin [Neurontin] 200 mg PO TID 09/11/19 Hydroxychloroquine Sulfate 200 mg PO DAILY 09/11/19 [Plaquenil] Hydroxyzine HCl 50 mg PO DAILY 09/11/19 Ipratropium/Albuterol Sulfate 3 ml IH Q4 PRN 09/11/19 [Iprat-Albut 0.5-3(2.5) mg/3 ml] LORazepam [Ativan] 1 mg PO BID 09/11/19 Lamotrigine [Lamictal] 400 mg PO HS 09/11/19 Levothyroxine Sodium [Levo-T] 25 mcg PO DAILY 09/11/19 Potassium Chloride [Klor-Con 10] 10 meq PO DAILY 09/11/19 Sulfasalazine [Azulfidine] 1,000 mg PO BID 09/11/19 Trospium Chloride [Sanctura] 20 mg PO BID 09/11/19 Vitamin B Complex [Balanced B-50] 1 each PO DAILY 09/11/19 Warfarin Sodium [Coumadin] 5 mg PO [id number] 09/11/19 amLODIPine BESYLATE [Norvasc] 10 mg PO 0900 09/11/19 tiZANidine HCL [Zanaflex] 4 mg PO QID 09/11/19 Methocarbamol 500 mg PO Q8 PRN #90 tablet 09/12/19 oxyCODONE HCL/ACETAMINOPHEN 1 - 2 each PO Q4 PRN #90 tablet 09/12/19 [Percocet 7.5-325] Consultations this Visit: None Procedures this Visit: Other Allergies/Adverse Reactions: Allergies Allergy/AdvReac Type Severity Reaction Status Date / Time No Known Allergies Allergy Verified 09/11/19 15:48 Patient Problems: Current Active Problems Problem Status Onset Acute non-ST elevation myocardial infarction (NSTEMI) Acute Dehydration Acute Dyspnea Acute Hypotension Acute COPD (chronic obstructive pulmonary disease) Chronic Chronic low back pain Chronic Essential hypertension Chronic GERD (gastroesophageal reflux disease) Chronic Generalized osteoarthritis Chronic Hypothyroidism Chronic Lupus Chronic PVD (peripheral vascular disease) Chronic bipolar type 1 Chronic Discharge Summary: Patient was initially admitted to observation status to remain supine for 12 hours post surgery. During the first 12 hours patient's BP did remain elevated but did respond to oral antihypertensive medications. On the AM of the she was ambulating with two person assist. It was appearaent that she would not be able to manage well at home and manager social media was consulted to arrange for placement for the patient. That evening patient started to have some hypotension with systolic running in the 80-90s. Patient was asymptomatic. It was felt that she might have been dehydrated from the surgery and post op course and her blood pressure meds may have contributed to her low blood pressure. Patient was started on IV fluids of NS at 100cc per hour. She seem to respond well to this with normalization of her BP. On the her blood pressure remained in the 100-130 systolic range. Placement was made for her to go to [facility] for further rehab. This AM at about 0530 she developed some increasing SOB, chest congestion by ascultation. This was associated with some left shoulder pain and mild left anterior chest pain. EKG show some mild ST depression in the lateral leads. Chest ex-ray showed some interstitial changes with some pulmonary congestion. Patient was tachycardic at that time with rate of 144. Patient was given IV lasix. Chest/shoulder discomfort resolved with lasix. Troponin done at 0600 was elevated at 0.12. It was felt that she may have had some cardiac strain related to possible CHF. however repeat troponin showed it to have jumped to 4. 14. Patient did have a stress test done in May by her staff assistant in [place] which was felt to be normal except for some mild ischemic changes in the area of her diagonal artery. Since episode this AM patient has been stable with no further complaints. Because of her jumped in troponin it was felt that she needed to be further evaluated by a staff assistant. - Final Diagnosis (1) Acute non-ST elevation myocardial infarction (NSTEMI) Problems: Was cleared by staff assistant prior to surgery, has a stress test done in May which only showed some mild abnormality with a diagonal branch area. (2) Chronic low back pain Problems: S/P LFd of L 3,4,5. Patient did have a small puncture to the dura sac which was repaired with one suture. Patient has not reported any headaches related to this. Patient has been ambulating with one person assist. (3) Essential hypertension Problems: We have had initially some elevated BP, then decrease BP. Has been normal yesterday until this am, it do go up with episode of SOB and chest pain. (4) COPD (chronic obstructive pulmonary disease) Problems: Has been stable on home medications (5) GERD (gastroesophageal reflux disease) Problems: no symptoms at this time (6) Generalized osteoarthritis Problems: stable (7) Hypothyroidism Problems: stable on home medications (8) Lupus Problems: stable on home medications (9) PVD (peripheral vascular disease) Problems: Has had CVA earlier this year. Coumadin was help prior to procedure. It has been restarted but INR is subtherapeutic at this time. (10) bipolar type 1 Problems: stable on home medications
[2019-09-14] MEDS ORDERED: ASPIRIN 325 MG TABLET PO ONE ×2 (12:27→12:28)
[2019-09-14] MEDS ORDERED: CLOPIDOGREL BISULFATE 75 MG TABLET PO ONE (13:08)
[2019-09-14 14:26] VITALS: BP 122/58
--- NOTE | 2019-09-15 07:37 | Operative Note ---
PROCEDURE DATE: 09/11/2019 PREOPERATIVE DIAGNOSIS: 1. Severe spinal stenosis, L2-3. 2. Severe spinal stenosis, L3-4, with herniated nucleus pulposus. POSTOPERATIVE DIAGNOSIS: 1. Severe spinal stenosis, L2-3. 2. Severe spinal stenosis, L3-4, with herniated nucleus pulposus. PROCEDURES PERFORMED: 1. Left side laminotomy with foraminotomy and partial facetectomy for decompression of spinal stenosis with neurogenic claudication, L2-3. 2. Left side exposure, right side sublaminar laminotomy, L2-3, with foraminotomy and partial facetectomy for decompression of severe spinal stenosis and neurogenic claudication. 3. Left side laminotomy with foraminotomy and partial facetectomy for decompression of spinal stenosis with neurogenic claudication, L3-4. 4. Left side exposure, right side sublaminar laminotomy, L3-4, with foraminotomy and partial facetectomy for decompression of severe spinal stenosis and neurogenic claudication. 5. Left side laminotomy with excision of herniated nucleus pulposus, L3-4. 6. Closure of durotomy at the L2-3 level due to severe adhesions of dura to the periosteum inferior surface of the left L2 lamina. 7. Intraoperative fluoroscopy and interpretation for needle placement. 8. Use of operating microscope and microsurgical technique. SURGEON: Ab Perry Jr., M.D. RAIL FILLER: KVNG Smith BC ANESTHESIA: General. COMPLICATIONS: None. CONDITION FOLLOWING THE PROCEDURE: Good. OPERATIVE FINDINGS: This patient had severe symptoms from severe stenosis at L2-3 and even worse stenosis at L3-4 in conjunction with a herniated nucleus pulposus. Both were addressed from left-sided minimally invasive exposures. At the L2-3 level, severe adhesions of the dura to the most inferior surface of the laminal periosteum at L2-3 caused a small longitudinal tear in the dura which was oversewn with two single sutures. This led to a watertight seal which was also covered with a DuraGen-type material. Otherwise, the herniated nucleus pulposus at L3-4 was addressed in conjunction with the decompression at the L3-4 level. DESCRIPTION OF PROCEDURE: The patient is taken to the operating room and general anesthetic induced. The patient was placed in the prone position and the back was thoroughly scrubbed, sterilely prepped and draped. C-arm fluoroscopy was brought into position to identify the surgical level. A Tuohy needle was then placed adjacent to the paraspinous process of the lumbar spine and driven down to the base of the posterior spinous process. X-rays were taken to confirm vertical direction of the needle and identification of the L2-3 level for surgical care. When the Touhy needle was found to be placed and replaced in the ideal position, skin beckford were made and the skin was infiltrated with 0.5% Marcaine with epinephrine. A 2-cm transverse incision was then made adjacent to the affected side of the lumbar spine at the affected level. The scalpel blade was then inserted through the subcutaneous tissue and, in a vertical direction, the lumbar fascia was incised through the transverse incision of the skin. Next, the smallest obturator for the cylindrical retractor set was inserted into the skin and through the division of the lumbar fascia down to the palpable inferior aspect of the lamina of the affected level. This was followed by progressive dilators and ended with a cylindrical retractor being placed down to the affected lamina. Its accurate placement was again confirmed radiographically by AP and lateral x-rays intraoperatively. The dilators were then removed, leaving the cylindrical retractor in place at the desired surgical level. High power magnification was then brought into the surgical field and utilized through the cylindrical retractor for the following microsurgical technique application and dissection. The thin muscular cuff remaining over the lamina was removed with a combination of pituitary rongeurs and electrocautery to control hemostasis. Typically, both monopolar and bipolar electrocautery are used for this purpose. The inferior aspect of the lamina then received a [place] retractor and C-arm fluoroscopy was again brought into position to confirm medial placement and visualization of the lamina as well as to reconfirm the affected level is accurately identified for the surgical procedure to follow. Once this was confirmed, a high-speed huan was inserted and the posterior aspect of the lamina and base of the posterior spinous process began to be thinned down until just passing through the anterior aspect of the lamina, thus both visualizing and palpating the thick ligamentum flavum over the dural sac. There was deemed to be adequate exposure over the area affected for surgery and resection with the high-speed huan continued until well above the superior margin of the disc space. A combination of 2- and 3-mm Kerrison rongeurs were then used to remove the remaining thin wisp of anterior lamina and portions of the posterior spinous process until there was wide exposure in the desired area for surgical care. The ligamentum flavum was then freed from the superior margin which was identified by the initiation of bleeding, marking the origin of the ligamentum flavum superiorly. The ligamentum flavum was from the lamina at this point and reflected inferiorly. Kerrison rongeurs were then used to resect all of the ligamentum flavum, exposing the dural sac. Using the Kerrison rongeurs, the foraminotomy was performed on the surgical side until there was adequate room as demonstrated by passage of the Ramirez probe into the neural foramen. This required a resection of bony spicules, osteophytes, and hypertrophic ligamentum flavum within the spinal canal and neural foramen to confirm adequate relief of the exiting nerve root as well as the nerve root passing by the axilla, destined for next level emergence. A combination of bipolar electrocautery, Gelfoam and thrombin were used to control hemostasis as needed. Attention was directed in the opposite direction toward the opposite side of the spinal canal and ligamentum flavum was resected from the anterior aspect of the lamina on the opposite side to provide additional central decompression. At this point, thrombin was placed directly on the dura and allowed to remain for one minute, and then the excess removed. This was followed by a small piece of Gelfoam which covered the laminotomy site, which had been soaked in thrombin. The cylindrical tract was then gradually removed and any area of hemorrhage received electrocautery treatment. The lumbar fascia was then approximated with 0-Vicryl and a subcuticular closure of the subcutaneous and skin was then approximated with Steri-Strips. 15 cc of 0.5% Marcaine with epinephrine was then instilled into the muscular tissue and subcutaneous layer at all four quadrants of the incision to aid in postoperative analgesia. A dressing was applied and the patient was then taken to the recovery room in good condition. During decompression posteriorly, microsurgical high speed huan use continued in the contralateral direction, removing sufficient posterior spinous process base and anterior lamina on the contralateral side to leave a cuff of ligamentum flavum covering the dura. Then all ligamentum flavum was resected until the neural foramen on the opposite side was also visualized. Kerrison rongeurs under direct visualization and protecting the dura with cottonoids was performed to allow direct visualization and decompression of the opposite neural foramen, again until a Ramirez probe would pass adequately and completely out the neural foramen without significant impingement. At the L2-3 level, following bilateral decompression, the small durotomy was addressed with two single 6-0 Prolene sutures which led to a watertight seal. This was then covered with a DuraGen material prior to closure of the fascia and skin at the L2-3 level. The identical procedure was carried out at the L3-4 level. In addition to the bilateral decompression for neurogenic claudication, a vertical incision was made in the annulus on the left-hand side through which the herniated nuclear material and all loose nuclear material within the disc space was evacuated. Curettage of the endplate was carried out to ensure healthy fixation of the resulting granulation tissue to the bone. Gelfoam was then placed over this bilateral decompression, bilateral foraminotomies and partial facetectomies at the L3-4 level, prior to then also removing the tubular retractor from this level and suturing as described at the L2-3 level. The patient was then taken to the recovery room in good condition where motor and sensory examination was confirmed to be normal. AB PERRY JR., M.D. DANIEL/franklin (Please copy [facility] provider when applicable) Job #[id number] ED[place]
--- NOTE | 2019-09-15 16:50 | Diagnostic Imaging Report ---
JOSE A GARSIA [facility] [address] [id number] Report Submission Date: Sep 14, 2019 6:10:45 AM CDT Patient Study Name: SRIKANTH GUTIERREZ Date: Sep 14, 2019 5:42:20 AM CDT Modality Type: DX Gender: F Description: CHEST 1VIEW : 38 Institution: [facility] Physician: JOSE A GARSIA EXAMINATION: CHEST 1VIEW HISTORY: soa, recent back surgery (Hx) / Note time : 09/14/2019 6:05:31 AM User : Roro Petit soa, recent back surgery (DICOM Hx) (DICOM Hx) COMPARISON: None FINDINGS: There are bilateral interstitial opacities. There is no focal consolidation, pleural effusion, or pneumothorax. The cardiomediastinal silhouette is normal. The visible bony thorax is intact. IMPRESSION: Bilateral interstitial opacities, which may represent pulmonary vascular congestion. Electronically signed on Sep 14, 2019 6:10:45 AM CDT by: Efraín HOGAN
== END 2019-09-14 15:45 | disposition home or self-care (01) | DRG 518 ==
LOC: OPSURG 06:17 → SOUTH 10:35 → OBSVTOIN 13:45 → SOUTH 13:45
PROVIDERS: ADMIT Family Medicine; ATTEND Family Medicine
PROC: 00NY0ZZ Release Lumbar Spinal Cord, Open Approach (ICD-10-PCS; principal; 2019-09-11)
PROC: 01NB0ZZ Release Lumbar Nerve, Open Approach (ICD-10-PCS; 2019-09-11)
PROC: 0SB20ZZ Excision of Lumbar Vertebral Disc, Open Approach (ICD-10-PCS; 2019-09-11)
PROC: 00NT0ZZ Release Spinal Meninges, Open Approach (ICD-10-PCS; 2019-09-11)
DX: M48.061 Spinal stenosis, lumbar region without neurogenic claudication (principal); I21.4 Non-ST elevation (NSTEMI) myocardial infarction; G97.41 Accidental puncture or laceration of dura during a procedure; F31.9 Bipolar disorder, unspecified; J44.9 Chronic obstructive pulmonary disease, unspecified; F32.9 Major depressive disorder, single episode, unspecified; M25.78 Osteophyte, vertebrae; M46.02 Spinal enthesopathy, cervical region; I10 Essential (primary) hypertension; G96.12 Meningeal adhesions (cerebral) (spinal); K58.9 Irritable bowel syndrome, unspecified; I95.9 Hypotension, unspecified; G70.00 Myasthenia gravis without (acute) exacerbation; K21.9 Gastro-esophageal reflux disease without esophagitis; E78.5 Hyperlipidemia, unspecified; E86.0 Dehydration; M15.0 Primary generalized (osteo)arthritis; M32.9 Systemic lupus erythematosus, unspecified; F41.9 Anxiety disorder, unspecified; I73.9 Peripheral vascular disease, unspecified; G47.30 Sleep apnea, unspecified; G25.81 Restless legs syndrome; G89.29 Other chronic pain; M51.26 Other intervertebral disc displacement, lumbar region; Z86.73 Personal history of transient ischemic attack (TIA), and cerebral infarction without residual deficits; Z90.49 Acquired absence of other specified parts of digestive tract; Z79.890 Hormone replacement therapy; Z79.01 Long term (current) use of anticoagulants; Z79.899 Other long term (current) drug therapy; Z98.49 Cataract extraction status, unspecified eye; Y83.8 Other surgical procedures as the cause of abnormal reaction of the patient, or of later complication, without mention of misadventure at the time of the procedure; Y92.234 Operating room of hospital as the place of occurrence of the external cause
CPT/HCPCS: 36415; 71045; 80048; 80053; 82550; 83880; 84484; 85025; 85610; 85730; 93005; 97116; 97530; 97535; A9270; G0378; J0360; J0690; J1170; J1644; J1940; J2001; J2175; J2370; J2405; J2704; J2930; J3010; J3490; J7030; J7120; 20930; 20936; 22633; 22840; 22853; 63047; 99221; 99231; 99238; S1016